=== PATIENT | male | born 1965 | race Caucasian/White ===

== ENCOUNTER 2016-12-09 20:53 | Emergency (ER) | payer OTHER ==
[~2016-12-09] VITALS: Ht 175.3 cm; Wt 95.2 kg
[~2016-12-09 20:53] MED LIST: CIPR0.3S2 RIGHT EYE; NAPR250T57 PO; TEST3GEL TOPICAL
[2016-12-09 21:21] VITALS: BP 116/83; PULSE 81; RESP 18; TEMP 98.5; O2SAT 99
[2016-12-09] MEDS ORDERED: TEST1KIT IM (21:48)
--- NOTE | 2016-12-09 22:04 | PD ---
HPI Chief Complaint: Foreign Body Time Seen by Provider: 22:00 Travel History International Travel<30 days: No Contact w/Intl Traveler<30days: No Traveled to known affect area: No History of Present Illness HPI Patient's 51-year-old male who receives testosterone injections at home. Today he used a new device and his injected into his right buttock. They presented with concern that he lives in his back. He denies any pain at the site. No excessive bleeding or induration. PFSH Past Medical History Medical History: Denies Significant Hx Cardiovascular Problems: No Diminished Hearing: No Tetanus Vaccination: > 5 Years Influenza Vaccination: No PNEUMOCCOCAL Vaccine (Year): 2 Social History Alcohol Use: Yes (Occ.) Tobacco Use: Yes (Chewing tobacco) Substance Use: No Allergies-Medications (Allergen,Severity, Reaction): Coded Allergies: Bactrim (Verified Allergy, Mild, UPSET STOMACH, 12/09/16) Reported Meds & Prescriptions Reported Meds & Active Scripts Active Reported Testone Cik Inj (Testosterone Cypionate) 200 Mg/Ml Kit 100 Mg IM Q15D Naprosyn (Naproxen) 250 Mg Tab 250 Mg PO BID Review of Systems Skin: Positive Other (see the history of present illness) Physical Exam Narrative GENERAL: Well-developed and well-nourished adult male in no acute distress. SKIN: Is a very small puncture constantin on the right upper buttock from IM injection. There is no visible foreign body. No tenderness, induration. Transillumination does not reveal any objects. Warm and dry. Good turgor without tenting. HEAD: Normocephalic and atraumatic. CARDIOVASCULAR: Regular rate and rhythm without murmurs, rubs, clicks or gallops. RESPIRATORY: Clear to auscultation bilaterally with symmetrical rise and fall, no distress or use of accessory muscles. MUSCULOSKELETAL: No gait disturbances. Patient freely moving all four extremities spontaneously. Extremities without clubbing, cyanosis, or edema. No obvious deformities. NEUROLOGIC: CN II-XII grossly intact. Awake and alert. Motor grossly within normal limits. Normal speech. PSYCHIATRIC: Appropriate mood and affect; insight and judgment normal. Data Data Last Documented VS Vital Signs Date Time Temp Pulse Resp B/P Pulse Ox O2 Delivery O2 Flow Rate FiO2 12/09/16 21:21 98.5 81 18 116/83 99 MDM Medical Decision Making Medical Screen Exam Complete: Yes Emergency Medical Condition: Yes Differential Diagnosis Worried well versus foreign body versus malfunctioning medical corps officer Narrative Course Patient is a 51-year-old male who receives testosterone injections by his . Today they performed one in the right buttock with a new device. After the injection the needle was not visible and they were concerned it was lodged in the buttock. They bring device within and inside the syringe there is clearly a hypodermic needle visible but is fully intact, the bevel in the opening are visible as well. There is no sign of foreign body in the buttock. Given both of these findings there is no need for additional workup at this time. A medical screening exam was performed: At the time of evaluation the presenting medical condition was determined not to be of an emergent nature. The patient was given the option of receiving additional care, but declined. Patient was given options for additional community resources from which to obtain care. The Patient Has Been advised to seek medical attention for their presenting complaint. The patient has been advised to return to the ER at any time if an emergent condition develops. Diagnosis Primary Impression: Encounter for medical screening examination Condition: Alexsander Layton III Dec 09, 2016 22:04
== END 2016-12-09 22:04 | disposition left against medical advice (07) ==
LOC: PHEFT 20:53
DX: R68.89 Other general symptoms and signs (principal)
CPT/HCPCS: 99281